=== PATIENT | female | born 1985 | race Caucasian/White ===

== ENCOUNTER 2016-11-25 08:52 | Outpatient (CLI) | payer OTHER ==
[~2016-11-25] VITALS: Ht 152.4 cm; Wt 95.5 kg
[~2016-11-25 08:52] MED LIST: CALCIUM + VITA1 EAC2 PO; CLA 1,000 MG1000 MG PO; CREATINE 50005000 MG PO; EXCEDRIN EXTRA1 EACH PO; GLUCOSAMINE CO1 EAC4 PO; IRON325 MG PO; LEXAPRO20 MG PO; MULTIPLE VITAM1 EAC4 PO; PROBIOTIC1 EAC1 PO; TRI-SPRINTEC1 EACH PO; VITAMIN D31000 UNI1 PO; XANAX0.5 MG PO
[2016-11-25 09:08] VITALS: BP 105/71
== END 2016-11-25 11:30 | disposition home or self-care (01) ==
LOC: LDRP-OP 08:52 → 2WEST 08:53 → LDRP-OP 02-27 11:56
DX: Z03.79 Encounter for other suspected maternal and fetal conditions ruled out (principal); W19.XXXA Unspecified fall, initial encounter; O99.213 Obesity complicating pregnancy, third trimester; E66.9 Obesity, unspecified; Z68.41 Body mass index [BMI] 40.0-44.9, adult; Z3A.31 31 weeks gestation of pregnancy; O99.343 Other mental disorders complicating pregnancy, third trimester; F41.9 Anxiety disorder, unspecified; O99.820 Streptococcus B carrier state complicating pregnancy
CPT/HCPCS: 59025; G0378

== ENCOUNTER 2017-01-21 15:11 | Inpatient (IN) | payer OTHER ==
[2017-01-21] VITALS (17 sets, daily range): BP systolic 112–138; BP diastolic 55–78
[~2017-01-21] VITALS: Ht 152.4 cm; Wt 99.3 kg
[2017-01-21 17:27] LABS: BASOPHIL COUNT 0.1 K/uL (0-0.1); EOSINOPHIL (%) 0 % (0-5); HEMATOCRIT 38.8 % (36.0-46.0); IMMATURE GRANULOCYTE COUNT 0.2 K/uL; INSTRUMENT ABS NEUTROPHIL CT 19.1 K/uL; LYMPHOCYTE COUNT 1.9 K/uL (1.0-2.8); MCH 29.2 PG (29.0-34.0); MCV 88.6 FL (83-99); MEAN PLAT.VOLUME 13.2 uM^3 (9.5-12.4); MONOCYTE (%) 4.2 % (3-12); MONOCYTE COUNT 0.9 K/uL (0-0.8); NEUTROPHIL (%) 86.1 % (45-76); NEUTROPHIL COUNT 19.1 K/uL (1.8-6.4); PLATELET COUNT 193 K/uL (156-360); RBC DIS.WIDTH-CV 13.4 % (11.8-14.6); RBC DIS.WIDTH-SD 43.5 % (39-53); RED BLOOD COUNT 4.38 M/uL (3.80-5.20); WHITE BLOOD COUNT 22.2 K/uL (4.1-10.2)
[2017-01-22] VITALS (9 sets, daily range): BP systolic 108–140; BP diastolic 57–81
[2017-01-22] MEDS ORDERED: MOTRIN800 MG PO (02:52)
[2017-01-22] MEDS ORDERED: PERCOCET 5/31 TABLET PO (02:52)
[2017-01-23 02:23] VITALS: BP 121/62
[2017-01-23 06:35] LABS: EOSINOPHIL (%) 0.2 % (0-5); HEMATOCRIT 28.5 % (36.0-46.0); IMMATURE GRANULOCYTE (%) 1.1 % (0.0-0.7); IMMATURE GRANULOCYTE COUNT 0.2 K/uL; INSTRUMENT ABS NEUTROPHIL CT 10.9 K/uL; MCH 29.6 PG (29.0-34.0); MCHC 31.9 G/DL (30.0-36.0); MCV 92.8 FL (83-99); MEAN PLAT.VOLUME 12.7 uM^3 (9.5-12.4); MONOCYTE COUNT 1.1 K/uL (0-0.8); NEUTROPHIL (%) 71.9 % (45-76); NEUTROPHIL COUNT 10.9 K/uL (1.8-6.4); PLATELET COUNT 138 K/uL (156-360); RBC DIS.WIDTH-SD 47.1 % (39-53); RED BLOOD COUNT 3.07 M/uL (3.80-5.20); WHITE BLOOD COUNT 15.2 K/uL (4.1-10.2)
[2017-01-23 08:01] VITALS: BP 112/62
[2017-01-23 11:53] VITALS: BP 122/77
[2017-01-23 15:48] VITALS: BP 125/82
[2017-01-23 19:15] VITALS: BP 133/66
[2017-01-23 22:40] VITALS: BP 122/82
== END 2017-01-24 14:57 | disposition home or self-care (01) | DRG 765 ==
LOC: LDRP-OP 15:11 → 2WEST 15:13 → LDRP-OP 02-27 13:55
PROVIDERS: Nurse Practitioner; Obstetrics & Gynecology
PROC: 3E0S3CZ (ICD-10-PCS; principal; 2017-01-21)
PROC: 00HU33Z Insertion of Infusion Device into Spinal Canal, Percutaneous Approach (ICD-10-PCS; principal; 2017-01-21)
PROC: 10D00Z1 Extraction of Products of Conception, Low, Open Approach (ICD-10-PCS; 2017-01-22)
DX: O99.214 Obesity complicating childbirth (principal); Z68.41 Body mass index [BMI] 40.0-44.9, adult; O99.344 Other mental disorders complicating childbirth; E66.9 Obesity, unspecified; O99.824 Streptococcus B carrier state complicating childbirth; O76 Abnormality in fetal heart rate and rhythm complicating labor and delivery; O77.0 Labor and delivery complicated by meconium in amniotic fluid; F41.9 Anxiety disorder, unspecified; O63.1 Prolonged second stage (of labor); Z3A.39 39 weeks gestation of pregnancy; Z37.0 Single live birth
CPT/HCPCS: 85025; 86870; 86880; 86900; 86901; 86905; 86920; 88307; C1755; G0378; J0690; J1100; J2274; J2405; J2540; J3010; J7120

== ENCOUNTER 2017-01-27 14:46 | Emergency (ER) | payer OTHER ==
[~2017-01-27] VITALS: Ht 152.4 cm; Wt 94.2 kg
[~2017-01-27 14:46] MED LIST changes: +MOTRIN800 MG PO; +PERCOCET 5/31 TABLET PO
[2017-01-27 16:49] LABS: HEMATOCRIT 31.9 % (36.0-46.0); MCH 29.5 PG (29.0-34.0); MCHC 32.6 G/DL (30.0-36.0); MCV 90.6 FL (83-99); RBC DIS.WIDTH-CV 13.3 % (11.8-14.6); RBC DIS.WIDTH-SD 43.5 % (39-53); RED BLOOD COUNT 3.52 M/uL (3.80-5.20); WHITE BLOOD COUNT 10.5 K/uL (4.1-10.2)
[2017-01-27 16:54] LABS: MEAN PLAT.VOLUME 10.5 uM^3 (9.5-12.4); PLATELET COUNT 227 K/uL (156-360)
[2017-01-27 16:55] LABS: CHLORIDE 103 mEq/L (99-109); POTASSIUM 3.8 mEq/L (3.7-5.4); SODIUM 138 mEq/L (136-147)
[2017-01-27 16:57] LABS: GLUCOSE 82 mg/dL (70-99); PTT 28.4 SEC (25-37)
[2017-01-27 16:59] LABS: ANION GAP 10 MEQ/L (2-14); TOTAL BILIRUBIN 0.3 mg/dL (0.0-1.0)
[2017-01-27 17:01] LABS: ALKALINE PHOSPHATASE 141 IU/L (3-129); GFR ESTIMATE (CALCULATED) > 59 mL/min/
[2017-01-27 17:02] LABS: UREA NITROGEN (BUN) 8 mg/dL (9-23)
[2017-01-27 17:04] LABS: LIPASE 7 U/L (1.0-51.0)
[2017-01-27 17:36] LABS: TROP-I INTERPRETATION NEGATIVE; TROPONIN-I < 0.01 ng/mL (0.0-0.30)
[2017-01-27 18:03] LABS: ADD MIUA? YES; BILIRUBIN NEGATIVE; BLOOD LARGE; COLOR YELLOW ((YELLOW)); GLUCOSE (STRIP) NEGATIVE; KETONES NEGATIVE; LEUKOCYTES SMALL; NITRITE NEGATIVE; PROTEIN (STRIP) NEGATIVE; SPECIFIC GRAVITY 1.005 (1.000-1.030); UROBILINOGEN 0.2 MG/DL (0.2-1.0)
[2017-01-27 18:09] LABS: BACTERIA RARE /HPF; EPITHELIAL CELLS RARE /HPF; MUCUS NONE SEEN /LPF; WHITE BLOOD CELLS 0-5 /HPF (0-5)
[2017-01-27 20:15] LABS: TROP-I INTERPRETATION NEGATIVE; TROPONIN-I < 0.01 ng/mL (0.0-0.30)
[2017-01-27] MEDS ORDERED: MOTRIN800 MG PO (20:33)
[2017-01-27 21:11] VITALS: BP 142/95
== END 2017-01-27 21:14 | disposition home or self-care (01) ==
LOC: EME 14:46
PROVIDERS: Physician Assistant
DX: R07.81 Pleurodynia (principal); O99.89 Other specified diseases and conditions complicating pregnancy, childbirth and the puerperium; K21.9 Gastro-esophageal reflux disease without esophagitis; K58.9 Irritable bowel syndrome, unspecified
CPT/HCPCS: 71275; 80053; 81003; 83690; 84484; 85027; 85379; 85610; 85730; 93005; 99281; 99284; J1885; J7030

== ENCOUNTER → 2017-03-20 | Outpatient (CLI) | payer OTHER | END | disposition home or self-care (01) | LOC: LAC 13:11 | DX: Z39.1 Encounter for care and examination of lactating mother (principal); O92.03 Retracted nipple associated with lactation; O92.79 Other disorders of lactation | CPT/HCPCS: G0463 ==